=== PATIENT | female | born 1990 | race Caucasian/White ===

== ENCOUNTER 2017-02-22 23:07 | Emergency (ER) | payer MEDICAID ==
[~2017-02-22] VITALS: Ht 175.3 cm; Wt 107.9 kg
[~2017-02-22 23:07] MED LIST: DICY10CA88 PO; NORCO10T PO; PENI500T2 PO; POTA20TA19 PO; ZOF4T PO
[2017-02-22 23:22] VITALS: BP 136/89
[2017-02-23] MEDS ORDERED: HYDR-3965 PO (00:37)
[2017-02-23] MEDS ORDERED: AMOX500C2 PO (00:37)
== END 2017-02-23 00:44 | disposition home or self-care (01) ==
LOC: ER 23:08
DX: O26.892 Other specified pregnancy related conditions, second trimester (principal); H66.92 Otitis media, unspecified, left ear; Z3A.22 22 weeks gestation of pregnancy; Z88.5 Allergy status to narcotic agent
CPT/HCPCS: 99283